=== PATIENT | female | born 1935 | race Native Hawaiian/Other Pacific Islander ===

== ENCOUNTER 2016-03-14 07:29 | Outpatient (CLI) | payer OTHER ==
[~2016-03-14] VITALS: Ht 162.6 cm; Wt 104.3 kg
== END 2016-03-14 20:09 | disposition home or self-care (01) ==
LOC: NM 07:29
DX: I25.10 Atherosclerotic heart disease of native coronary artery without angina pectoris (principal); R07.89 Other chest pain
CPT/HCPCS: A9500; J2785